=== PATIENT | female | born 1970 | race Caucasian/White ===

== ENCOUNTER → 2022-01-26 | Outpatient (REF) | payer OTHER ==
[2022-01-26 19:39] LABS: APPEARANCE, URINE MANUAL CLEAR (CLEAR); COLOR, URINE MANUAL COLORLESS (YELLOW)
[2022-01-26 19:40] LABS: BILIRUBIN, URINE MANUAL NEGATIVE (NEGATIVE); BLOOD URINE MANUAL NEGATIVE (NEGATIVE); GLUCOSE, URINE (UA) MANUAL NEGATIVE (NEGATIVE); KETONE, URINE MANUAL NEGATIVE (NEGATIVE); LEUKOCYTE ESTERASE, URINE MAN NEGATIVE (NEGATIVE); NITRITE, URINE MANUAL NEGATIVE (NEGATIVE); PROTEIN, URINE MANUAL NEGATIVE (NEGATIVE); SPECIFIC GRAVITY,URINE MANUAL 1.005 (1.002-1.035); UROBILINOGEN, URINE MANUAL NORMAL (NORMAL)
== END ==
LOC: M SMT 16:47
PROVIDERS: ATTEND Physician Assistant
DX: R32 Unspecified urinary incontinence (principal)